=== PATIENT | male | born 1970 | race African-American/Black ===

== ENCOUNTER 2021-03-10 04:42 | Emergency (ER) | payer OTHER, SELFPAY ==
[2021-03-10] MEDS ORDERED: Acetaminophen 500 MG TAB ONE (05:10)
== END 2021-03-10 06:19 | disposition home or self-care (01) ==
LOC: ERS 04:42
DX: S16.1XXA Strain of muscle, fascia and tendon at neck level, initial encounter (principal); S20.211A Contusion of right front wall of thorax, initial encounter; V89.2XXA Person injured in unspecified motor-vehicle accident, traffic, initial encounter
CPT/HCPCS: 70450; 71045; 72125; 93005; G0390